=== PATIENT | male | born 2000 | race Two or more races ===

== ENCOUNTER 2024-06-15 10:00 | Day surgery (SDC) | payer OTHER, MEDICAID, SELFPAY ==
[2024-06-14 07:18] VITALS: BMI 25.8
[2024-06-14 08:47] LABS: Basophils # (Auto) 0.1 Thou/mm3 (0.0-0.2); Basophils % (Auto) 1 % (0-2.5); Eosinophils # (Auto) 0.6 Thou/mm3 (0.0-0.5); Eosinophils % (Auto) 7 % (0-10); Hemoglobin 14.7 g/dL (13.5-16.0); Immature Granulocytes % (Auto) 0 % (0-0); Immature Granulocytes Auto 0.02 Thou/mm3 (0.00-0.00); Lymphocytes # (Auto) 3.5 Thou/mm3 (1.0-4.8); Lymphocytes % (Auto) 43 % (10-50); Mean Corpuscular HGB Conc 32.7 g/dl (31.0-37.0); Mean Corpuscular Hemoglobin 29.2 pg (25.0-35.0); Mean Corpuscular Volume 90 fL (80-100); Monocytes # (Auto) 0.8 Thou/mm3 (0.0-0.8); Monocytes % (Auto) 10 % (0-12); Neutrophils # (Auto) 3.1 Thou/mm3 (1.8-7.7); Neutrophils % (Auto) 38 % (37-80); Nucleated Red Blood Cell % 0 /100 WBC (0); Platelet Count 200 Thou/mm3 (140-440); RDW Standard Deviation 42.1 fL (35.1-43.9); Red Blood Count 5.03 Miln/mm3 (4.50-5.90)
[2024-06-14 09:01] LABS: Anion Gap 9 (7-16); BUN/Creatinine Ratio 12 Ratio (12-20); Blood Urea Nitrogen 13 mg/dL (9-23); Calcium 9.3 mg/dL (8.3-10.6); Chloride 107 mMol/L (98-107); Creatinine (Component) 1.1 mg/dL (0.6-1.3); Estimated Creatinine Clearance 93.4 mL/min (>60); Glucose 100 mg/dL (74-106); Osmolality,Calculated 283 (275-295); Sodium 142 mMol/L (136-145); eGFR > 60 See Note
[2024-06-15 10:37] VITALS: BP 120/86; PULSE 77; RESP 15; TEMP 36.9; O2SAT 100; BMI 25.0
[2024-06-15] MEDS: RINGERS LACTATED 1000 ML 1,000 ML 20 ML IV (11:00)
[2024-06-15 13:28] VITALS: BP 120/73; PULSE 79; RESP 13; TEMP 36.8; O2SAT 98
--- NOTE | 2024-06-15 13:30 | ESOP_ITS ---
Date of Procedure 06/15/24 Pre Op Diagnosis Right posterior scalp mass Post Op Diagnosis Right posterior scalp subcutaneous soft tissue mass Procedure Excision of subcutaneous soft tissue mass from posterior right scalp Findings An approximately 2.5 cm cystic mass on the right posterior scalp Procedure Description Patient brought into the operating room in supine position. After administration of monitored anesthesia care, patient was placed in left lateral decubitus position. His posterior scalp was shaved and prepped and draped in s tandard surgical manner. After administration of local anesthesia an approximately 3 cm incision was made and dissection was deepened into soft tissue. The underlying subcutaneous soft tissue mass was excised circumferentially with electrocautery. The mass appeared to be cystic in nature, approximately 2.5 cm in diameter. Wound was washed and irrigated and hemostasis achieved using electrocautery. Incision was closed with simple interrupted sutures using 2-0 Prolene. Topical antibiotic ointment and pressure dressings applied. Patient tolerated the procedure well. He was breathing spontaneously and without difficulty and was transferred to postanesthesia care in stable condition. Instruments, needles and sponge counts were reported to be correct x 2. Anesthesia MAC and local Pathology / specimen Other (Scalp mass) Estimated Blood Loss 10 Condition Stable Disposition PACU Surgeon Stas Olivo MD Surgical Staff Operation Date: 06/15/24 13:45 Case Staff Anesthesiologist: Yaw Bee
[2024-06-15 13:35] VITALS: BP 117/68; PULSE 71; RESP 16; O2SAT 98
--- NOTE | 2024-06-15 13:41 | SUR.PHASEII ---
1328: Pt received in [facility] via [facility]. Report from Ashley RICE and Dr. Bee. Pt groggy, but awake. Resp even, unlabored. VS stable. Dressing to left posterior scalp dry, clean, intact. Denies pain.
[2024-06-15 13:45] VITALS: BP 114/62; PULSE 69; RESP 16; O2SAT 98
[2024-06-15 13:55] VITALS: BP 127/82; PULSE 75; RESP 16; O2SAT 97
[2024-06-15 14:05] VITALS: BP 122/76; PULSE 78; RESP 17; TEMP 36.8; O2SAT 98
--- NOTE | 2024-06-15 14:40 | SUR.PHASEII ---
1355: Pt more alert. VS stable. Dressing remains dry, clean, intact. Denies pain. Sitting up tolerating po fluids with no difficulty swallowing and no n/v. 1420: Pt fully awake, oriented x3. VS stable. Dressing unchanged. Pt dressed and assisted to transpsort chair. Ambulation steady. Pt and girlfriend stated understanding of discharge instructions. Pt also instructed to roller picker his prescription at [facility] in [place]. Pt discharged from [facility] in stable condition.
== END 2024-06-15 14:20 | disposition home or self-care (01) ==
PROVIDERS: PCP Family Medicine; Referring Provider Surgery; Visit Provider Surgery
PROC: (CPT 21012; principal; 2024-06-15 13:30)
DX: L72.12 Trichodermal cyst (principal)
CPT/HCPCS: 21012; 36415; 80048; 85025; A4217; A4649; J0690; J2250; J3010; J7120; A9270